=== PATIENT | female | born 1995 | race Two or more races ===

== ENCOUNTER → 2022-07-28 | Outpatient (CLI) | payer MEDICAID ==
[~2022-07-28] MED LIST: ALBUTEROL SULF 2.5 MG/0.5ML(0.5%) NEB SOLN ONE
== END | disposition home or self-care (01) ==
LOC: RT 09:02
PROVIDERS: ATTEND Internal Medicine Pulmonary Disease
DX: J45.40 Moderate persistent asthma, uncomplicated (principal)
CPT/HCPCS: 94060